=== PATIENT | female | born 2000 | race Hispanic/Latino ===

== ENCOUNTER 2021-08-09 15:49 | Emergency (ER) | payer BC, SELFPAY ==
--- NOTE | ~2021-08-09 | CT_ITS ---
EXAMINATION: CT BRAIN W/O DATE: 08/09/2021 18:25 INDICATION: Syncope. Frontal headache. Head injury. TECHNIQUE: Computed tomography (CT) of the head was performed without intravenous contrast. The dose- length product was 605.33 mGy-cm. The mA was adjusted according to patient size. Iterative reconstruc tion technique was employed. COMPARISON: No prior studies for comparison. FINDINGS: Normal brain parenchymal volume for age. Normal encarnacion-white differentiation. No acute intrac ranial hemorrhage, infarction, mass or mass effect. No ventriculomegaly or midline shift. Midline sagittal images demonstrate a normal corpus callosum, c raniovertebral junction and sella turcica. Basilar cisterns are patent. Paranasal sinuses and mastoids are pneumatized. No depressed skull fractures. IMPRESSION: 1. No acute intracranial abnormality. Reviewed, dictated and finalized at location A. [facility]
[2021-08-09 16:30] VITALS: BP 137/90; PULSE 80; RESP 18; O2SAT 100
--- NOTE | 2021-08-09 16:33 | ECG_ITS ---
Measurements Intervals [place] Rate: 81 P: 51 AR: 127 QRS: 53 QRSD: 86 T: 31 QT: 333 QTc: 387 Interpretive Statements SINUS RHYTHM WITH SINUS ARRHYTHMIA INCOMPLETE RIGHT BUNDLE BRANCH BLOCK BORDERLINE ECG Electronically Signed On 08-09-2021 17:05:53 DEBRIDGING MACHINE OPERATOR by Abhishek Umanzor D.O.
[2021-08-09 17:58] LABS: Basophils Percent Auto 0.3 % (0.2-1.2); Eosinophils Absolute Auto 0.1 K/mm3 (0-0.3); Hematocrit 39.4 % (37.0-47.0); Hemoglobin 13.2 g/dL (12.0-15.0); Immature Granulocyte Absolute 0.01 K/mm3 (0.00-0.031); Immature Granulocyte Percent A 0.1 % (0-0.5); Lymphocytes Absolute Auto 2.83 K/mm3 (0.9-3.2); Lymphocytes Percent Auto 40.5 % (18.3-44.2); Mean Corpuscular HGB Conc 33.5 g/dl (32-36); Mean Corpuscular Hemoglobin 29.7 pg (26-34); Mean Corpuscular Volume 88.5 fl (80-100); Mean Platelet Volume 10.7 fl (7.4-10.4); Monocytes Absolute Auto 0.4 K/mm3 (0.1-0.6); Monocytes Percent Auto 6.2 % (2.6-8.5); Neutrophils Absolute Auto 3.6 K/mm3 (1.3-6.7); Neutrophils Percent Auto 50.9 % (45.5-73.1); Platelet Count Result 263 k/mm3 (150-375); Red Blood Count 4.45 M/mm3 (4.2-5.4); Red Cell Distribution Width 12.6 % (11.5-14.5)
[2021-08-09 18:15] LABS: Anion Gap 9 mmol/L (8-16); Blood Urea Nitrogen 16 mg/dL (7-17); Calcium 9.4 mg/dL (8.4-10.2); Carbon Dioxide 29 mmol/L (22-30); Chloride 103 mmol/L (98-107); Estimated CRCL calculation 96 ml/min; Estimated Glomerular Filt Rate > 60; Glucose 106 mg/dL (65-110); Potassium 3.7 mmol/L (3.4-5.0); Sodium 141 mmol/L (137-145)
--- NOTE | 2021-08-09 18:17 | ED.HEATRA ---
HPI - Head Injury General Chief complaint: Head Injury Stated complaint: syncopal episode 2 days ago, head injury Time Seen by Provider: 08/09/21 17:09 Source: patient Mode of arrival: ambulatory Limitations: no limitations History of Present Illness HPI Narrative: 21-year-old female no past medical history complains of syncopal episode 2 days prior to arrival. No fever, no focal weakness, no headache, no vision changes no neck pain rashes. Patient states she was alone at the time got up was walking down the turner and woke up on her back looking at the ceiling. She did notice some pain at her mid forehead with a bruise unsure how she got that. Last normal menstrual period a week ago. No past medical history, no previous history of same. Arrives alert oriented x3 moving all extremities with no complaint. No chest pain, no shortness of breath, no hemoptysis, no neck pain or stiffness. No sinus pain no nasal congestion no shortness of breath no productive cough. No palpitations. Related Data Allergies Allergy/AdvReac Type Severity Reaction Status Date / Time amoxicillin Allergy Intermediate Rash Verified 12/28/15 14:58 Review of Systems Review of Systems: CONSTITUTIONAL: no fever, no weight loss, no confusion EYES: no vision changes, no eye pain ENT: no rhinorrhea, no sore throat, no difficulty swallowing CARDIOVASCULAR: no chest pain, no leg edema, no palpitations RESPIRATORY: no cough, no shortness of breath, no hemoptysis GASTROINTESTINAL: no abdominal pain, no nausea, no vomiting, no diarrhea GENITOURINARY: no flank pain, no dysuria, no hematuria SKIN: no rash, no jaundice MUSCULOSKELETAL: no back pain, no trauma. NEUROLOGIC: syncope x 1 no dizziness, no focal weakness PSYCHIATRIC: No hallucinations, no suicidal ideation Exam Narrative: General: alert, afebrile, answering all questions appropriately Head: normocephalic, atraumatic Eyes: EOMI bilaterally, anicteric, no injection ENT: moist mucous membranes, oropharynx patent, no rhinorrhea Neck: supple, trachea midline, no JVD Chest: equal chest rise bilaterally, no chest wall trauma noted Lungs: clear to auscultation bilaterally, respirations unlabored CV: regular rate, no RUBEN B, calf size equal bilaterally Abd: soft, non-distended, non-tender, no rebound, no gaurding, negative Ibrahim's : no CVA tenderness B, bladder non-distended Back: no lumbar bony tenderness. paraspinal muscles without spasm EXT: no deformity noted, moving all extremities equally Skin: warm, dry, no pallor, 1.5 cm contusion to mid forehead Neuro: alert, oriented x 3; CN 2-12 grossly intact, no dysarthria Psych: affect appropriate, though content normal Course Reevaluation(s) Reevaluation #1: Ambulatory with steady gait, no focal neuro deficits, afebrile, NAD> Date: 08/09/21 Time: 19:38 Vital Signs Vital signs: Vital Signs Pulse Rate 80 08/09/21 16:30 Respiratory Rate 18 08/09/21 16:30 Blood Pressure 137/90 08/09/21 16:30 Pulse Oximetry 100 08/09/21 16:30 Pulse Rate 80 08/09/21 16:30 Respiratory Rate 18 08/09/21 16:30 Blood Pressure 137/90 08/09/21 16:30 Pulse Oximetry 100 08/09/21 16:30 MDM - Head Injury Differential Diagnosis Differential diagnosis: Likely concussion without loss of consciousness, closed head injury, subarachnoid hematoma, subdural hematoma, concussion with loss of consciousness and other (Vasovagal syncope, anemia, dysrhythmia, electrolyte disorder, dehydration, UTI, pyelonephritis) Medical Records Attestation: I reviewed the patient's medical records. Lab Data Attestation: I reviewed the patient's lab results. Lab results narrative: WBC normal, no evidence of anemia with a hemoglobin 13.2, renal function normal creatinine 0.6 no increased anion gap, glucose normal LFTs normal Result diagrams: 08/09/21 17:52 08/09/21 17:52 Labs: Lab Results 08/09/21 08/09/21 08/09/21 Range/Units 17:52 17:52 19:06 WBC 7.
[2021-08-09 19:24] LABS: Add Urine Microscopic? YES; Appearance Urine Cloudy (Clear); Bilirubin Urine Negative (Negative); Blood Urine Negative (Negative); Color Urine Yellow (Yellow); Glucose Urine UA Negative (Negative); Ketones Urine Negative (Negative); Leukocyte Esterase Ur Negative LEU/UL (Negative); Mucus Urine Rare /lpf; Nitrate Urine Negative (Negative); Protein Urine Negative (Negative); RBC Urine 0-2 /hpf (0-2); Specific Grav Ur 1.018 (1.001-1.035); Squamous Epithelial Cell Urine Many /hpf (Few); Urobilinogen Urine Negative mg/dL (<2.0); WBC Urine 0-3 /hpf
[2021-08-09 19:48] VITALS: BP 132/73; PULSE 60; RESP 18; O2SAT 100
== END 2021-08-09 19:49 | disposition home or self-care (01) ==
PROVIDERS: Emergency Provider Emergency Medicine
DX: R55 Syncope and collapse (principal); S00.83XA Contusion of other part of head, initial encounter; W19.XXXA Unspecified fall, initial encounter
CPT/HCPCS: 36415; 70450; 80048; 81001; 81025; 85025; 93005; 99283

== ENCOUNTER 2023-12-30 22:56 | Emergency (ER) | payer MEDICAID, SELFPAY ==
[2023-12-30 22:57] VITALS: BP 141/81; PULSE 73; RESP 14; TEMP 36.8; O2SAT 100
--- NOTE | 2023-12-30 23:44 | ED.FEMALEGU ---
HPI - Female Genitourinary General Chief complaint: Vaginal Bleeding Stated complaint: , vaginal bleeding Time Seen by Provider: 12/30/23 23:24 Source: patient Mode of arrival: ambulatory Limitations: no limitations History of Present Illness HPI Narrative: 23-year-old female presenting for vaginal bleeding. Reports her last menstrual period was September 22 and she had positive test 2 weeks ago. Had some very light vaginal spotting on her tissue paper today after wiping. She has been having intermittent cramps but no other pain and has unchanged throughout her . Otherwise no complaints Related Data Allergies Allergy/AdvReac Type Severity Reaction Status Date / Time amoxicillin Allergy Intermediate Rash Verified 12/28/15 14:58 Review of Systems Review of Systems: All systems reviewed & are unremarkable except as noted in HPI and below Exam Narrative: Constitutional: Generally well appearing, no acute distress Head: Atraumatic, no deformities. Eyes: Pupils equal, round, and reactive to light. Neck: Supple, no tracheal deviation, no JVD. ENMT: Mucous membranes moist Cardiovascular: S1, S2 auscultated. No murmurs, rubs, or gallops. No S3/S4. Normal Distal pulses. No peripheral edema. Respiratory: Lung sounds equal. No wheezes, rales, or rhonchi. Gastrointestinal: Abdomen was soft and non-tender. Non-distended. No rebound or guarding. Genitourinary: Deferred Musculoskeletal: Normal muscle tone and bulk. No obvious deformities or tenderness over extremities. Skin: No rashes. Neurological: Strength 5/5 in extremities. Cranial nerves I-XII grossly intact. Distal sensation intact. Mental Status: Awake, alert and oriented x3. Follows commands Course Vital Signs Vital signs: Vital Signs Temperature 36.8 C 12/30/23 22:57 Pulse Rate 73 12/30/23 22:57 Respiratory Rate 14 12/30/23 22:57 Blood Pressure 141/81 H 12/30/23 22:57 Pulse Oximetry 100 12/30/23 22:57 Oxygen Delivery Room Air 12/30/23 22:57 Temperature 36.8 C 12/30/23 22:57 Pulse Rate 73 12/30/23 22:57 Respiratory Rate 14 12/30/23 22:57 Blood Pressure 141/81 H 12/30/23 22:57 Pulse Oximetry 100 12/30/23 22:57 Oxygen Delivery Room Air 12/30/23 22:57 MDM - Female Genitourinary MDM Narrative Medical decision making narrative: 23-year-old female presenting with 1 episode of very light vaginal spotting after eating herself today. Reports she is and her last menstrual cycle was early September she is not sure exactly when after that. A positive test on December 15. Therefore it is really unknown when she conceived but her HCG bedside test is positive. Will send off for HCG quantitative. I did perform bedside when he care ultrasound which did show positive IUP with a yolk sac seen. This would make this quite early . She does not any free fluid in abdomen so I think it is very unlikely to be ectopic given her normal vitals, no pain, 1 episode of very light bleeding. Discussed follow-up with OBGYN on Monday. She plans to do so. She has been on OBGYN. Pt feeling improved and would like to go home at this point. Return precautions were given to the patient include any new or worsening symptoms or development of and not limited to any chest pain, shortness of breath, lightheadedness, abdominal pain, fevers, chills. Patient understands and agrees. They are to follow-up with her PCP. All questions were answered. I reviewed the patient's vital signs, history, allergies, and labs and imaging workup. Lab Data Labs: Lab Results 12/30/23 Range/Units 23:38 Urine Test Pending Discharge Plan Discharge Clinical Impression: Threatened Patient Disposition: Home, Self-Care Condition: Stable Instructions: Antibiotic Form, Threatened Miscarriage (ED) Additional Instructions: Follow-up with your OBGYN on Monday. Jose
[2023-12-30 23:50] LABS: Pregnancy On Board Control Positive; Urine Pregnancy Test Positive
== END 2023-12-31 00:02 | disposition home or self-care (01) ==
PROVIDERS: Emergency Provider Emergency Medicine
DX: O20.0 Threatened abortion (principal); Z3A.01 Less than 8 weeks gestation of pregnancy
CPT/HCPCS: 36415; 81025; 84702; 99283